=== PATIENT | male | born 1945 | race Caucasian/White ===

== ENCOUNTER → 2016-03-05 | Day surgery (SDC) | payer MEDICARE, BC ==
[2016-03-05] VITALS (7 sets, daily range): BP systolic 107–139; BP diastolic 61–73
[~2016-03-05] VITALS: Ht 198.1 cm; Wt 144.7 kg
[~2016-03-05] MED LIST: ASPIR 8181 MG ORAL; COLCHICINE0.6 M1 PO; ELIQUIS5 MG PO; FUROSEMIDE40 MG ORAL; JANUVIA25 MG ORAL; LISINOPRIL5 MG ORAL; LR 1000ml ONE; Lidocaine 1% MPF 10mg/ml 5ml ONE; MAGNESIUM MALATE1 GM MC; MAGNESIUM250 M3 PO; MULTIVITAMINS1 EAC2 ORAL; POTASSIUM CHLO10 MEQ ORAL; PROBIOTIC1 EAC5 PO; Propofol 10mg/ml 20ml IV ONE; SOTALOL80 M1 ORAL; TAMSULOSIN HCL0.4 MG ORAL; VITAMIN D400 INTLU ORAL
--- NOTE | 2016-03-05 08:15 | Short Stay Surgery H&P ---
History of Present Illness History of Present Illness Chief Complaint see H&P HPI Talib Rodriguez Dali is a 70 year old male who was admitted on for Colon Screening Patient History Allergies: Coded Allergies: NO KNOWN ALLERGIES (Verified Allergy, Unknown, 03/05/16) PAST MEDICAL HISTORY: Past Surgeries: Social History: Medication History Scheduled Apixaban (Eliquis), 5 MG PO BID, (Reported) Aspirin* (Aspir 81*), 81 MG ORAL DAILY, (Reported) Colchicine (Colchicine), 0.6 MG PO EVERY OTHER DAY, (Reported) Furosemide* (Lasix*), 40 MG ORAL TWICE A DAY, (Reported) Lactobacillus Combo No.11 (Probiotic), 1 EACH PO DAILY, (Reported) Lisinopril (Lisinopril*), 10 MG ORAL DAILY, (Reported) Magnesium (Magnesium), 425 MG PO BID, (Reported) Multivitamins* (Multivitamins*), 1 TAB ORAL DAILY, (Reported) Potassium Chloride* (K-Dur*), 10 MEQ ORAL TWICE A DAY, (Reported) Sitagliptin* (Januvia*), 50 MG ORAL DAILY, (Reported) Sotalol Hcl (Sotalol*), 12 MG ORAL BID, (Reported) Tamsulosin Hcl (Tamsulosin Hcl*), 0.4 MG ORAL BEDTIME, (Reported) Vitamin D (Vitamin D3), 1,000 UNITS ORAL DAILY, (Reported) Miscellaneous Medications Magnesium Malate (Magnesium Malate), 1 GM MC, (Reported) Physical Exam Vital Signs Last Vital Signs Date Time Temp Pulse Resp B/P Pulse Ox O2 Delivery O2 Flow Rate FiO2 03/05/16 07:57 96.8 57 17 107/61 98 Room Air Plan Attestation Are the patient's medical conditions optimized for surgery? SANKET PERALTA Mar 05, 2016 08:15
--- NOTE | 2016-03-05 08:20 | Pre-Procedure Note/Attestation ---
Pre-Procedure Note/Attestation Complete Prior to Procedure Planned Procedure: not applicable Procedure Narrative: colon Indications for Procedure Pre-Operative Diagnosis: screen / diverticulosis Attestation I attest that I discussed the nature of the procedure; its benefits; risks and complications; and alternatives (and the risks and benefits of such alternatives ), prior to the procedure, with the patient (or the patient's legal textile machinery sales representative). I attest that, if there was a reasonable possibility of needing a blood transfusion, the patient (or the patient's legal textile machinery sales representative) was given the [facility] standardized written summary, pursuant to the Javier Farideh Blood Safety Act ([place] Health and Safety Code # 1645, as amended). I attest that I re-evaluated the patient just prior to the surgery and that there has been no change in the patient's H&P, except as documented below: SANKET PERALTA Mar 05, 2016 08:20
--- NOTE | 2016-03-05 08:50 | Immediate Post-Op Evaluation ---
Immediate Post-Op Evalulation Immediate Post-Op Evalulation Procedure: colonoscopy Date of Evaluation: Mar 05, 2016 Time of Evaluation: 08:49 IV Fluids: 300 Blood Products: 0 Blood Pressure Systolic: 117 Blood Pressure Diastolic: 72 Pulse Rate: 57 Respiratory Rate: 14 O2 Sat by Pulse Oximetry: 99 Temperature (Fahrenheit): 97.4 Nausea: No Vomiting: No Complications none Patient Status: awake, reacts, patent Hydration Status: adequate Drug: none THOMAS LOVELL CRNA Mar 05, 2016 08:50
--- NOTE | 2016-03-05 08:51 | Endoscopy Procedure Note ---
Endoscopy Procedure Note Indication for Procedure: screen, tics Procedures Performed: colonoscopy Operative Findings/Diagnosis: mod tics, mild rhoids Specimen: none Pt Tolerated Procedure Well: Yes Estimated Blood Loss: none Anesthesiologist: Franny Anesthesia: MAC, moderate sedation Medication Given: see anesthesia record Implant(s) used?: No 50 yrs or older w/o bx or poly: Yes 10yrs. F/U not recommended: Yes If not recommended, why?: 10 yrs. F/U needed: Yes 18 years or older w/prev. colo: Yes <3yrs. since last colonoscopy: No Med reason:<3 yrs.: System Reason:<3 yrs.: Last colonoscopy >= to 3yrs: Yes SANKET PERALTA Mar 05, 2016 08:51
--- NOTE | 2016-03-05 08:53 | Brief Operative Note ---
Immediate Post Operative Note Operative Note Chief Complaint: screen , diverticulosis Pre-op Diagnosis: screen / diverticulosis Procedure: colon Post-op Diagnosis: diverticulosis, hemorhoids Surgeon: carlos enrique Anesthesiologist: Franny Anesthesia: MAC Specimen: none Complications: none Condition: stable Estimated Blood Loss: none Drains: none Implant(s) used?: No SANKET PERALTA Mar 05, 2016 08:53
--- NOTE | 2016-03-05 08:53 | Anethesia Preoperative Eval ---
Anesthesia Pre-op PMH/ROS General Date of Evaluation: Mar 05, 2016 Time of Evaluation: 08:15 Anesthesiologist: emily ASA Score: ASA 3 Mallampati Score Class I : Soft palate, uvula, fauces, pillars visible Class II: Soft palate, uvula, fauces visible Class III: Soft palate, base of uvula visible Class IV: Only hard plate visible Mallampati Classification: Class III Surgeon: carlos enrique Diagnosis: colon screening Surgical Procedure: colonoscopy Anesthesia History: none Social History: smoking - hx Family History: no anesthesia problems Allergies: Coded Allergies: NO KNOWN ALLERGIES (Verified Allergy, Unknown, 03/05/16) Medications: see eMAR Past Medical History Cardiovascular: Reports: CAD, HTN, arrhythmia - hx afib Pulmonary: Reports: ELIZABETH, other - cpap Gastrointestinal/Genitourinary: Denies: CRI, ESRD, GERD, other Neurologic/Psychiatric: Denies: CVA, TIA, dementia, depression/anxiety, other Endocrine: Reports: DM HEENT: Denies: [place] (L), [place] (R), cataract (L), cataract (R), glaucoma, other Hematology/Immune: Denies: DVT, anemia, bleeding disorder, other Musculoskeletal/Integumentary: Reports: other - chronic back pain Other: obesity PSxH Narrative: gastric bypass Anesthesia Pre-op Phys. Exam Physician Exam Last Vital Signs Date Time Temp Pulse Resp B/P Pulse Ox O2 Delivery O2 Flow Rate FiO2 03/05/16 07:57 96.8 57 17 107/61 98 Room Air Constitutional: NAD Neurologic: CN 2-12 intact Respiratory: CTA Gastrointestinal: S/NT/ND Airway Exam Mallampati Classification 3 Mallampati Score: Class III MO: limited Neck: thick TMD: 1 ROM: full Dentures: no lower, no upper Anesthesia Pre-op A/P Labs Accucheck fbs = 100 Studies Pre-op Studies: EKG - sr Risk Assessment & Plan Plan: mac Status Change Before Surgery: No Pre-Antibiotics Drug: none THOMAS LOVELL CRNA Mar 05, 2016 08:53
--- NOTE | 2016-03-05 09:05 | 48 Hour Post Anesthesia Eval ---
Post Anesthesia Evaluation Procedure: colonoscopy Date of Evaluation: Mar 05, 2016 Time of Evaluation: 09:05 Blood Pressure Systolic: 125 0: 60 Pulse Rate: 56 O2 Sat by Pulse Oximetry: 99 Airway: patent Nausea: No Vomiting: No Hydration Status: adequate Mental Status/LOC: patient returned to baseline Post-Anesthesia Complications: none Follow-up care needed: N/A THOMAS LOVELL CRNA Mar 05, 2016 09:05
--- NOTE | 2016-03-05 15:27 | Operative Note - Dictated ---
DATE OF OPERATION: 03/05/2016 PROCEDURE: Colonoscopy. SURGEON: Joe Sweeney M.D. ANESTHESIA: Please see the separate anesthesia report for details. PRE-ENDOSCOPIC DIAGNOSIS: Screening. POST-ENDOSCOPIC DIAGNOSIS: 1. Diverticulosis, moderate. 2. Internal hemorrhoids, mild to moderate. PROCEDURE: The procedure, its risks, indications, alternatives, and possible complications including but not limited to, bleeding, infection, perforation, , and anesthesia complications were explained the patient and informed consent was obtained. The patient was then sedated and rectal exam was done which was normal. The colonoscope was then introduced in the rectum and advanced to the cecum without difficulty. The cecum was identified by the appearance of the ileocecal valve. The colonoscope was then gradually withdrawn and mucosa examined carefully. Examination of colonic mucosa revealed moderate sigmoid diverticulosis. Evaluation of the rectal area revealed mild internal hemorrhoids. There are no polyps or masses identified. The colonoscope was removed. The patient was sent to recovery in good condition. COMPLICATIONS: None. RECOMMENDATIONS: 1. High fiber diet. 2. Resume coagulation and antifungal therapy. 3. Outpatient followup. Joe Sweeney M.D. DR: Tanvir JOB#: [id number] CC:
--- NOTE | 2016-03-06 20:27 | Cardiology Report ---
APPROVED REPORT EKG Measurement Heart [id number] OR [id number] [id number] Sinus bradycardia Low voltage QRS Anterolateral infarct, age undetermined Abnormal ECG
== END | disposition home or self-care (01) ==
LOC: GAS 06:43
DX: Z12.11 Encounter for screening for malignant neoplasm of colon (principal); K57.30 Diverticulosis of large intestine without perforation or abscess without bleeding; K64.8 Other hemorrhoids; E11.9 Type 2 diabetes mellitus without complications; Z79.84 Long term (current) use of oral hypoglycemic drugs; I25.10 Atherosclerotic heart disease of native coronary artery without angina pectoris; Z95.5 Presence of coronary angioplasty implant and graft; I25.2 Old myocardial infarction; I10 Essential (primary) hypertension; I48.0 Paroxysmal atrial fibrillation; I50.9 Heart failure, unspecified; G47.33 Obstructive sleep apnea (adult) (pediatric); K21.9 Gastro-esophageal reflux disease without esophagitis; E78.00 Pure hypercholesterolemia, unspecified; M10.9 Gout, unspecified; E66.01 Morbid (severe) obesity due to excess calories; Z68.41 Body mass index [BMI] 40.0-44.9, adult; G89.29 Other chronic pain; M54.9 Dorsalgia, unspecified; Z79.82 Long term (current) use of aspirin; Z79.899 Other long term (current) drug therapy; Z86.718 Personal history of other venous thrombosis and embolism; Z89.421 Acquired absence of other right toe(s)
CPT/HCPCS: 82962; 93005; G0121; J2704; J7120; 94003; 94150